=== PATIENT | female | born 1995 | race Caucasian/White ===

== ENCOUNTER 2021-03-11 03:44 | Emergency (ER) | payer OTHER ==
[~2021-03-11] VITALS: Ht 182.9 cm; Wt 77.3 kg
[2021-03-11 04:46] LABS: URINE PREG TEST NEGATIVE (NEGATIVE)
[2021-03-11] MEDS ORDERED: metroNIDAZOLE (FLAGYL) 500MG TABLET PO ONE (05:25)
[2021-03-11 06:12] LABS: CHLAMYDIA DNA AMPLIFICATION NEGATIVE (NEGATIVE); GC DNA AMPLIFICATION NEGATIVE (NEGATIVE)
[2021-03-11] MEDS ORDERED: FLAG500T PO (06:23)
[2021-03-11 06:26] VITALS: BP 135/87
== END 2021-03-11 06:32 | disposition home or self-care (01) ==
LOC: M ED 03:44
DX: N76.0 Acute vaginitis (principal); A59.01 Trichomonal vulvovaginitis